=== PATIENT | male | born 1980 | race American Indian/Alaskan Native ===

== ENCOUNTER 2017-06-20 13:28 | Emergency (ER) | payer OTHER, BC ==
[2017-06-20 13:41] VITALS: BP 148/90; PULSE 68; RESP 18; TEMP 98.9; O2SAT 98
--- NOTE | 2017-06-20 14:36 | RAD ---
PROCEDURE: Radiographs of the left humerus. HISTORY: ? bicep tendon rupture - r/o fx COMPARISON: None FINDINGS: BONES: There is no fracture sizes of avulsion fracture from the distal left forearm/ elbow region. No dislocation or subluxation at the left elbow or shoulder joint. However, there is a sclerotic lesion which appears endosteal at the proximal left humeral diaphysis. This may be a cortical lesion though the cortex and does not appear thickened at the level of this lesion. Endosteal is favored. No onion scanning or gross local soft tissue mass is associated. Nevertheless, this is an indeterminate finding and follow-up MRI is advised for greater characterization. SOFT TISSUES: Normal. OTHER FINDINGS: None. IMPRESSION: No acute fracture or dislocation. Local soft tissues appear diffusely unremarkable. An endosteal sclerotic lesion is seen the proximal diaphysis of the left humerus favored over a cortical lesion. Its appearance is indeterminate. Malignancy is not excluded. Follow-up MRI is advised for greater characterization.
--- NOTE | 2017-06-20 14:38 | RAD ---
PROCEDURE: Radiographs of the left elbow. HISTORY: ? bicep tendon rupture - r/o fx COMPARISON: No prior. FINDINGS: BONES: Normal. No fracture. JOINTS: Normal. No dislocation or subluxation. No osteoarthritis. SOFT TISSUES: Normal. JOINT EFFUSION: None. OTHER FINDINGS: None IMPRESSION: Unremarkable radiographs of the left elbow.
[2017-06-20 15:03] LABS: BASO # 0.1 K/uL (0.0-0.2); EOS % 0.6 % (0.0-4.0); HEMOGLOBIN 13.8 g/dL (12.0-18.0); LYMPH # 2.4 K/uL (1.0-4.3); LYMPH % 37.4 % (20.0-40.0); MEAN CELL VOLUME 82.9 fL (80.0-94.0); MEAN CORPUSCULAR HGB CONC 32.6 g/dL (33.0-37.0); MEAN PLATELET VOLUME 8.5 fL (7.2-11.7); MONO # 0.3 K/uL (0.0-0.8); NEUT # 3.6 K/uL (1.8-7.0); RBC 5.1 Mil/uL (4.40-5.90); RED CELL DISTRIBUTION WIDTH 13.5 % (11.5-14.5); WHITE BLOOD COUNT 6.4 K/uL (4.8-10.8)
[2017-06-20 15:23] LABS: ALBUMIN 4.4 g/dL (3.5-5.0)
[2017-06-20 15:26] LABS: AST/SGOT 39 U/L (17-59); GFR AFRICAN-AMERICAN > 60; GFR NON-AFRICAN AMERICAN 56
[2017-06-20 15:27] LABS: ALB/GLOB RATIO 1.3 (1.0-2.1); ALT/SGPT 45 U/L (21-72); BLOOD UREA NITROGEN 23 mg/dL (9-20); CALCIUM 9.5 mg/dl (8.6-10.4)
--- NOTE | 2017-06-20 16:39 | C.PDOC ---
History Of Present Illness 37 yr old male presents to the ER stating he was reaching down to grab something when he felt a pop in the left bicep. Patient states he is unable to fully extend the arm. Patient denies injury to the arm or pain prior to the injury. Also denies chest pain, back pain, neck pain, weakness or numbness. Time Seen by Provider: 06/20/17 14:00 Chief Complaint (Nursing): Upper Extremity Problem/Injury History Per: Patient History/Exam Limitations: no limitations Onset/Duration Of Symptoms: Sudden Onset (ADVANCED REGISTERED NURSE) Past Medical History Reviewed: Historical Data, Nursing Documentation, Vital Signs Vital Signs: Last Vital Signs Temp 98.9 F 06/20/17 13:40 Pulse 68 06/20/17 13:40 Resp 18 06/20/17 13:40 BP 148/90 06/20/17 13:40 Pulse Ox 98 06/20/17 16:46 Family History: States: No Known Family Hx - Social History Hx Alcohol Use: No Hx Substance Use: No - Immunization History Hx Tetanus Toxoid Vaccination: No Hx Influenza Vaccination: No Hx Pneumococcal Vaccination: No Review Of Systems Except As Marked, All Systems Reviewed And Found Negative. Cardiovascular: Negative for: Chest Pain Musculoskeletal: Positive for: Arm Pain (Left arm, bicep injury ). Negative for : Neck Pain, Back Pain Neurological: Negative for: Weakness, Numbness Physical Exam - Physical Exam Appears: Non-toxic, No Acute Distress Skin: Warm, Dry, No Rash Head: Atraumatic, Normacephalic Chest: Symmetrical, No Tenderness Cardiovascular: Rhythm Regular, No Murmur Respiratory: Normal Breath Sounds, No Rales, No Rhonchi, No Stridor Extremity: Other (Left Arm - Unable to fully extend left elbow. [place]ah bicep knot. Noticable depression to the distal humeral area.) Neurological/Psych: Oriented x3, Normal Speech, Normal Motor ED Course And Treatment - Laboratory Results Result Diagrams: 06/20/17 14:57 06/20/17 14:57 O2 Sat by Pulse Oximetry: 98 (RA ) Pulse Ox Interpretation: Normal - Other Rad X-Ray - Left Humerus X-Ray: Viewed By Me, Read By Radiologist Interpretation: PROCEDURE: Radiographs of the left humerus. HISTORY: ? bicep tendon rupture - r/o fx. COMPARISON: None. FINDINGS: BONES: There is no fracture sizes of avulsion fracture from the distal left forearm/ elbow region. No dislocation or subluxation at the left elbow or shoulder joint. However, there is a sclerotic lesion which appears endosteal at the proximal left humeral diaphysis. This may be a cortical lesion though the cortex and does not appear thickened at the level of this lesion. Endosteal is favored. No onion scanning or gross local soft tissue mass is associated. Nevertheless, this is an indeterminate finding and follow-up MRI is advised for greater characterization. SOFT TISSUES: Normal. OTHER FINDINGS: None. IMPRESSION: No acute fracture or dislocation. Local soft tissues appear diffusely unremarkable. An endosteal sclerotic lesion is seen the proximal diaphysis of the left humerus favored over a cortical lesion. Its appearance is indeterminate. Malignancy is not excluded. Follow-up MRI is advised for greater characterization. X-Ray - Left Elbow X-Ray: Viewed By Me, Read By Radiologist Interpretation: PROCEDURE: Radiographs of the left elbow. HISTORY: ? bicep tendon rupture - r/o fx. COMPARISON: No prior. FINDINGS: BONES: Normal. No fracture. JOINTS: Normal. No dislocation or subluxation. No osteoarthritis. SOFT TISSUES: Normal. JOINT EFFUSION: None. OTHER FINDINGS: None. IMPRESSION: Unremarkable radiographs of the left elbow. Progress Note: Patient was unable to get an MRI secondary to body habitus. Patient is referred to orthopedics for furtehr evaluation. Medical Decision Making Medical Decision Making: PLAN: * X-Ray - Left Elbow, Left Humerus * MRI - Left Upper Extremity, Left Elbow * CBC * CMP Disposition - Disposition Referrals: Jonathan Martínez III, MD [Staff Provider] - Disposition: HOME/ ROUTINE Disposition Time: 16:30 Condition: GOOD Additional Instructions: Thank you for letting us take care of you today. Your provider was Dr. Maynard. You were treated for bicep tendon rupture. The emergency medical care you received today was directed at your acute symptoms. If you were prescribed any medication, please fill it and take as directed. It may take several days for your symptoms to resolve. Return to the Emergency Department if your symptoms worsen, do not improve, or if you have any other problems. Please contact your doctor or call one of the physicians/clinics you have been referred to that are listed on the Patient Visit Information form that is included in your discharge packet. Bring any paperwork you were given at discharge with you along with any medications you are taking to your follow up visit. Our treatment cannot replace ongoing medical care by a primary care provider (PCP) outside of the emergency department. Thank you for allowing the [facility] team to be part of your care today. Follow up with Dr. Martínez (orthopedics) or your primary doctor in 1-2 days. You were not able to get the MRI today and there is a good possibility that you will need surgery for your arm. Prescriptions: oxyCODONE/Acetaminophen [Percocet 5/325 mg Tab] 1 ea PO Q6 PRN #15 tab PRN Reason: Pain, Severe (8-10) Instructions: Tendon Rupture (ED) Forms: [employer] (Indonesian) - Clinical Impression Clinical Impression: Biceps tendon rupture - Scribe Statement The provider has reviewed the documentation as recorded by the Loisibe Alba Michel Provider Attestation: All medical record entries made by the Scribe were at my direction and personally dictated by me. I have reviewed the chart and agree that the record accurately reflects my personal performance of the history, physical exam, medical decision making, and the department course for this patient. I have also personally directed, reviewed, and agree with the discharge instructions and disposition.
== END 2017-06-20 16:46 | disposition home or self-care (01) ==
LOC: C.ER 13:28
DX: S46.212A Strain of muscle, fascia and tendon of other parts of biceps, left arm, initial encounter (principal); X58.XXXA Exposure to other specified factors, initial encounter